=== PATIENT | male | born 1985 | race Caucasian/White ===

== ENCOUNTER 2017-06-18 17:48 | Emergency (ER) | payer SELFPAY ==
[2017-06-18] MEDS ORDERED: Ibuprofen TAB* 800 MG PO ONE (19:27)
[2017-06-18] MEDS ORDERED: Pseudoephedrine TAB* 60 MG PO ONE (19:27)
--- NOTE | 2017-06-18 19:33 | ED ---
Throat Pain/Nasal Congestion - HPI Summary HPI Summary: Pt here w/ Rt sided maxillary/sinus pain which started past 2 days. Had a small amount of blood from nose with blowing earlier today. Has been rubbing ambasol over dental roots on this side, thinking he may have had a dental problem - reports he feels like his "tooth is trying to get pulled out". Denies nasal fracture but has a deviated septum. Breathing easily. Works out in the cold and home gets up to 75-80F d/t wood burning stove. He also smokes. Denies fever, chills, nausea, vomiting, headache (had one earlier but gone now), visual change , ocular pain, neck pain/stiffness, ST, otalgia, trouble breathing or swallowing. Other than ambasol, has not tried anything for pain. No dnetal injury and no drainage or swelling in mouth. No pain w/ chewing or hot/cold beverages. No h/o dental issues - last seen 3 yrs ago. No h/o sinusitis. - History of Current Complaint Chief Complaint: EDGeneral Time Seen by Provider: 06/18/17 18:40 Hx Obtained From: Patient, Family/Pathology Secretary/Transcriptionist - mom - Allergies/Home Medications Allergies/Adverse Reactions: Allergies Allergy/AdvReac Type Severity Reaction Status Date / Time No Known Allergies Allergy Verified 06/28/12 10:46 PMH/Surg Hx/FS Hx/Imm Hx Previously Healthy: Yes Endocrine/Hematology History: Denies: Hx Anticoagulant Therapy - Immunization History Date of Tetanus Vaccine: unknown Date of Influenza Vaccine: NO Infectious Disease History: No Infectious Disease History: Denies: Traveled Outside the [place] in Last 30 Days - Family History Known Family History: Positive: None - Social History Occupation: Employed Full-time Lives: With Family Alcohol Use: None Substance Use Type: Reports: Marijuana - occasionally Hx Tobacco Use: Yes Smoking Status (MU): Current Every Day Smoker Amount Used/How Often: ~1 PPD Review of Systems Constitutional: Negative Negative: Fever, Chills, Fatigue Eyes: Negative Negative: Photophobia, Blurred Vision, Diplopia, Drainage, Erythema Positive: Nasal Discharge - congestion, sinus pain Rt. Negative: Dental Pain, Sore Throat, Ear Ache Cardiovascular: Negative Negative: Palpitations, Chest Pain Respiratory: Negative Negative: Shortness Of Breath, Cough Gastrointestinal: Negative Negative: Abdominal Pain, Vomiting, Diarrhea, Nausea Positive: no symptoms reported Musculoskeletal: Negative Negative: Arthralgia, Myalgia, Decreased ROM Skin: Negative Negative: Rash, Bruising Neurological: Negative Negative: Headache, Weakness, Paresthesia, Numbness, Syncope, Slurred Speech Psychological: Normal All Other Systems Reviewed And Are Negative: Yes Physical Exam Triage Information Reviewed: Yes Vital Signs On Initial Exam: Initial Vitals Temp Pulse Resp BP Pulse Ox 98.8 F 84 16 136/79 98 06/18/17 18:00 06/18/17 18:00 06/18/17 18:00 06/18/17 18:00 06/18/17 18:00 Vital Signs Reviewed: Yes Appearance: Positive: Well-Appearing, No Pain Distress, Well-Nourished Skin: Positive: Warm, Dry - no erythema, no ecchymosis, no swelling over affected area Head/Face: Positive: Normal Head/Face Inspection - area of pain is NTTP over Rt maxillary sinus, RT alveolar ridge/dental roots and teeth themselves - no edema , no erythema, no d/c. Negative: TMJ Tenderness, Scalp Eyes: Positive: Normal, EOMI, KATIE, Conjunctiva Clear. Negative: Conjunctiva Inflammed, Discharge ENT: Positive: Normal ENT inspection, Hearing grossly normal, Pharynx normal, Nasal congestion - B/L nasal mucosa w/ erythema, mild edema and irritation (low grade sloughing from irritation, stuck on thick white mucous) - septum deviated toward Lt, making Rt nare more narrow then Lt - nasal passages are patent w/ breathing, TMs normal, Uvula midline. Negative: Pharyngeal erythema, Trismus, Muffled voice, Hoarse voice, Dental tenderness, Sinus tenderness Dental: Negative: Percussion Tenderness @, Gross Decay/Caries @, Dental Fracture @, Abscess @, Cervical Lymphadenopathy, Bleeding Neck: Positive: Supple, Nontender, No Lymphadenopathy Respiratory/Lung Sounds: Positive: Clear to Auscultation, Breath Sounds Present. Negative: Stridor, Tracheal Deviation, Wheezes Cardiovascular: Positive: Normal, RRR Musculoskeletal: Positive: Normal, Strength/ROM Intact Neurological: Positive: Normal, Sensory/Motor Intact, Alert, Oriented to Person Place, Time, CN Intact II-III Psychiatric: Positive: Normal - Luis Coma Scale Coma Scale Total: 15 Diagnostics - Vital Signs Vital Signs Temp Pulse Resp BP Pulse Ox 06/18/17 18:00 98.8 F 84 16 136/79 98 - Laboratory Lab Statement: Any lab studies that have been ordered have been reviewed, and results considered in the medical decision making process. EENT Course/Dx - Course Course Of Treatment: Suspect pt has maxillary sinus pressure d/t anatomy of deviated septum along w/ dry air in home, nasal congestion and smoking. Diff dx is a tooth root may be pushing into sinus - pt's sinus and dentition is w/o edema and NTTP. Advised close f/u w/ dentist tomorrow and will treat for sinus congestion today. Anbx not necessary at this time d/t short course of sx and no previous hx. Danger s/sx reviewed and pt agrees to return to ED if these present. - Diagnoses Provider Diagnoses: Right maxillary sinusitis Discharge - Discharge Plan Condition: Stable Disposition: HOME Patient Education Materials: Sinusitis (ED) Additional Instructions: The cause of your Right side sinusitis could be from mucosal irritation - this can occur from transitioning in/out of cold air to warm air, exposure to dry air in home, smoking and with deviated septum congestion can be compounded. It is advised that you try a decongestant (Sudafed - this may be purchased over the counter) along with saline nasal spray to reduce irritation of mucosa. You may also try ibuprofen (600mg every 6 hours with food) for pain and swelling along with heat or ice pack (whichever feels better). Try to keep home temperature at 68F or less and use humidification to moisten mucous membranes along with drinking plenty of water. It is also strongly encouraged that you follow-up with dentist for panoramic XR's to make sure a dental root is not pushing into your sinus here. Call tomorrow to schedule an appointment. If symptoms persist and you do not appear to have dental root irritation of sinus, follow-up with PCP as you can develop a sinus infection. Anything you can do to reduce/elminate smoking will help with this. *If you develop fever, headache, change in vision, pain with eye movement, trouble breathing or swallowing, return to ED
[2017-06-18 20:38] VITALS: BP 128/76
== END 2017-06-18 20:36 | disposition home or self-care (01) ==
LOC: ED 17:48
DX: J32.0 Chronic maxillary sinusitis (principal); F17.210 Nicotine dependence, cigarettes, uncomplicated
CPT/HCPCS: 99282; A9270-GY